=== PATIENT | female | born 1980 | race Caucasian/White ===

== ENCOUNTER 2017-03-27 22:05 | Emergency (ER) | payer BC ==
[~2017-03-27] VITALS: Ht 167.6 cm; Wt 78.7 kg
[~2017-03-27 22:05] MED LIST: FLEXERIL10 MG PO; KEPPRA1000 MG PO; KEPPRA750 MG PO; LAMICTAL150 MG PO; LAMICTAL200 MG PO; LIDODERM 5% P1 PATCH TD; MOTRIN600 MG PO; MOTRIN800 MG PO; NAPROSYN500 MG PO; VALIUM2 MG PO
[2017-03-27 23:23] LABS: HEMATOCRIT 37.6 % (36.0-46.0); MCH 30.7 PG (29.0-34.0); MCHC 32.7 G/DL (30.0-36.0); MCV 93.8 FL (83-99); PLATELET COUNT 241 K/uL (156-360); RBC DIS.WIDTH-CV 13.7 % (11.8-14.6); RBC DIS.WIDTH-SD 46.7 % (39-53); RED BLOOD COUNT 4.01 M/uL (3.80-5.20); WHITE BLOOD COUNT 8.4 K/uL (4.1-10.2)
[2017-03-28 00:16] LABS: CHLORIDE 111 mEq/L (99-109); POTASSIUM 3.7 mEq/L (3.7-5.4); SODIUM 142 mEq/L (136-147)
[2017-03-28 00:18] LABS: GLUCOSE 92 mg/dL (70-99)
[2017-03-28 00:19] LABS: ANION GAP 6 MEQ/L (2-14)
[2017-03-28 00:22] LABS: GFR ESTIMATE (CALCULATED) > 59 mL/min/
[2017-03-28 00:23] LABS: UREA NITROGEN (BUN) 12 mg/dL (9-23)
[2017-03-28 00:24] LABS: CREATINE KINASE 130 IU/L (1-294); TOTAL CK 130 IU/L (1-294)
[2017-03-28 00:34] LABS: CK-MB 1.3 ng/mL (0.0-4.9); QUANTITATIVE HCG < 4.0 MIU/ML
[2017-03-28 02:20] VITALS: BP 107/65
== END 2017-03-28 02:30 | disposition home or self-care (01) ==
LOC: EME 22:05
PROVIDERS: Emergency Medicine
DX: G40.909 Epilepsy, unspecified, not intractable, without status epilepticus (principal); S00.83XA Contusion of other part of head, initial encounter; M54.89 Other dorsalgia; W22.8XXA Striking against or struck by other objects, initial encounter
CPT/HCPCS: 70450; 70486; 80048; 80175 90; 81003; 82550; 82553; 84702; 85027; 99281; 99285

== ENCOUNTER 2017-06-09 01:06 | Observation (INO) | payer OTHER ==
[~2017-06-09] VITALS: Ht 167.6 cm; Wt 68.4 kg
[2017-06-09 02:26] LABS: HEMATOCRIT 38.8 % (36.0-46.0); MCH 31.5 PG (29.0-34.0); MCHC 34.5 G/DL (30.0-36.0); MCV 91.3 FL (83-99); MEAN PLAT.VOLUME 10.2 uM^3 (9.5-12.4); NRBC (%) 0.3 /100 WBC (0-0); PLATELET COUNT 246 K/uL (156-360); RBC DIS.WIDTH-SD 43.3 % (39-53); RED BLOOD COUNT 4.25 M/uL (3.80-5.20); WHITE BLOOD COUNT 9.1 K/uL (4.1-10.2)
[2017-06-09 02:46] LABS: CHLORIDE 111 mEq/L (99-109); POTASSIUM 3.5 mEq/L (3.7-5.4); SODIUM 142 mEq/L (136-147)
[2017-06-09 02:48] LABS: GLUCOSE 110 mg/dL (70-99)
[2017-06-09 02:50] LABS: ANION GAP 12 MEQ/L (2-14)
[2017-06-09 02:52] LABS: GFR ESTIMATE (CALCULATED) > 59 mL/min/
[2017-06-09 02:53] LABS: UREA NITROGEN (BUN) 11 mg/dL (9-23)
[2017-06-09 02:54] LABS: TOTAL CK 1123 IU/L (1-294)
[2017-06-09 02:55] LABS: CREATINE KINASE 1123 IU/L (1-294)
[2017-06-09 03:00] LABS: QUANTITATIVE HCG < 4.0 MIU/ML
[2017-06-09 03:01] LABS: CK-MB 4.3 ng/mL (0.0-4.9)
[2017-06-09 05:30] VITALS: BP 115/70
[2017-06-11 23:02] LABS: LAMOTRIGINE (LAMICTAL)+ 8.3 mcg/mL (4.0-18.0)
== END 2017-06-09 08:01 | disposition left against medical advice (07) ==
LOC: EME 01:06 → EDOF 04:26 → ENRESERV 04:28 → 5WEST 05:21
PROVIDERS: Emergency Medicine
DX: G40.909 Epilepsy, unspecified, not intractable, without status epilepticus (principal); M62.82 Rhabdomyolysis; Z91.19 Patient's noncompliance with other medical treatment and regimen; S00.531A Contusion of lip, initial encounter; S00.31XA Abrasion of nose, initial encounter; Z88.0 Allergy status to penicillin; Z87.891 Personal history of nicotine dependence; Z88.8 Allergy status to other drugs, medicaments and biological substances
CPT/HCPCS: 80048; 80048 91; 80175 90; 80177 90; 81003; 82550; 82550 91; 82553; 84702; 85027; 99281; 99285; G0378; J7030

== ENCOUNTER 2017-06-22 12:50 | Emergency (ER) | payer OTHER | END 2017-06-22 13:23 | disposition left against medical advice (07) | LOC: EME 12:50 | DX: S61.213A Laceration without foreign body of left middle finger without damage to nail, initial encounter (principal); Z53.21 Procedure and treatment not carried out due to patient leaving prior to being seen by health care provider ==

== ENCOUNTER 2017-10-01 09:43 | Day surgery (SDC) | payer OTHER ==
[~2017-10-01] VITALS: Ht 165.1 cm; Wt 68.0 kg
[~2017-10-01 09:43] MED LIST changes: +ATIVAN0.5 MG PO; +BENTYL20 MG PO; +CAPSAICIN57 GM TP; +KEPPRA XR750 MG PO; +LAMICTAL100 MG PO; +MAALOX ADVANCE355 ML PO; +METOCLOPRAMIDE H5 MG PO; +PANTOPRAZOLE SO40 MG PO; +PROBIOTIC1 EAC3 PO; +PROMETHAZINE HC25 M1 PO; +REGLAN5 MG PO; +TRAMADOL HCL50 MG PO; +TYLENOL EXTRA500 MG PO
[2017-10-01 10:31] VITALS: BP 110/65
[2017-10-01] MEDS ORDERED: LORTAB 5-325 M1 EACH PO (12:08)
[2017-10-01 13:00] VITALS: BP 103/68
[2017-10-01 13:50] VITALS: BP 119/64
== END 2017-10-01 13:50 | disposition home or self-care (01) ==
LOC: SDC 09:43
PROC: 0HBU0ZX Excision of Left Breast, Open Approach, Diagnostic (ICD-10-PCS; principal; 2017-10-01)
DX: N60.02 Solitary cyst of left breast (principal); L72.0 Epidermal cyst; G40.909 Epilepsy, unspecified, not intractable, without status epilepticus; Z87.891 Personal history of nicotine dependence; Z88.0 Allergy status to penicillin
CPT/HCPCS: 88304; J1100; J1956; J2175; J2250; J2405; J3010; J7120; S0020

== ENCOUNTER 2018-03-18 02:51 | Emergency (ER) | payer OTHER ==
[~2018-03-18] VITALS: Ht 167.6 cm; Wt 71.1 kg
[~2018-03-18 02:51] MED LIST changes: +LORTAB 5-325 M1 EACH PO
[2018-03-18 03:13] LABS: HEMATOCRIT 38.7 % (36.0-46.0); HEMOGLOBIN 13.2 G/DL (11.9-15.5); MCH 31.6 PG (29.0-34.0); MCHC 34.1 G/DL (30.0-36.0); MCV 92.6 FL (83-99); PLATELET COUNT 217 K/uL (156-360); RBC DIS.WIDTH-CV 13.1 % (11.8-14.6); RBC DIS.WIDTH-SD 44.4 % (39-53); RED BLOOD COUNT 4.18 M/uL (3.80-5.20); WHITE BLOOD COUNT 10.9 K/uL (4.1-10.2)
[2018-03-18 03:21] LABS: ALBUMIN 4.4 g/dL (3.2-4.8); CHLORIDE 106 mEq/L (99-109); POTASSIUM 3.8 mEq/L (3.7-5.4); SODIUM 139 mEq/L (136-147)
[2018-03-18 03:24] LABS: GLUCOSE 127 mg/dL (70-99); TOTAL PROTEIN 6.9 g/dL (6.4-8.3)
[2018-03-18 03:26] LABS: TOTAL BILIRUBIN 0.4 mg/dL (0.0-1.0)
[2018-03-18 03:27] LABS: ALKALINE PHOSPHATASE 55 IU/L (3-129); CREATININE 0.8 mg/dL (0.6-1.3); GFR ESTIMATE (CALCULATED) > 59 mL/min/
[2018-03-18 03:28] LABS: UREA NITROGEN (BUN) 13 mg/dL (9-23)
[2018-03-18 03:29] LABS: AST (GOT) 19 IU/L (2-34)
[2018-03-18 03:30] LABS: ALT (GPT) 21 IU/L (3-49)
[2018-03-18 03:36] LABS: QUANTITATIVE HCG < 4.0 MIU/ML
[2018-03-18 03:41] LABS: APPEARANCE CLEAR ((CLEAR)); BILIRUBIN NEGATIVE; BLOOD NEGATIVE; COLOR YELLOW ((YELLOW)); GLUCOSE (STRIP) NEGATIVE; KETONES 5; LEUKOCYTES NEGATIVE; NITRITE NEGATIVE; PROTEIN (STRIP) 100; SPECIFIC GRAVITY 1.024 (1.000-1.030); UROBILINOGEN 0.2 MG/DL (0.2-1.0)
[2018-03-18 03:44] LABS: BACTERIA NONE SEEN /HPF; EPITHELIAL CELLS RARE /HPF; MUCUS TRACE /LPF; RED BLOOD CELLS 0-5 /HPF (0-5); UCUL ADDED? NO; WHITE BLOOD CELLS 0-5 /HPF (0-5)
[2018-03-18 03:58] LABS: LIPASE 33 U/L (1.0-51.0)
[2018-03-18] MEDS ORDERED: BENTYL20 MG PO (05:09)
[2018-03-18] MEDS ORDERED: ZOFRAN4 MG PO (05:09)
[2018-03-18] MEDS ORDERED: PEPCID20 MG PO (05:57)
[2018-03-18 06:17] VITALS: BP 145/81
== END 2018-03-18 06:17 | disposition home or self-care (01) ==
LOC: EME 02:51
DX: R11.2 Nausea with vomiting, unspecified (principal); R19.7 Diarrhea, unspecified; E86.0 Dehydration; G40.909 Epilepsy, unspecified, not intractable, without status epilepticus; Z88.2 Allergy status to sulfonamides; Z88.0 Allergy status to penicillin; Z87.891 Personal history of nicotine dependence; Z88.8 Allergy status to other drugs, medicaments and biological substances
CPT/HCPCS: 76705; 80053; 81003; 83690; 84702; 85027; 99281; 99285; J2405; J2765; J3010; J7030

== ENCOUNTER 2018-04-20 14:01 | Emergency (ER) | payer OTHER ==
[~2018-04-20] VITALS: Ht 167.6 cm; Wt 72.5 kg
[~2018-04-20 14:01] MED LIST changes: +PEPCID20 MG PO; +ZOFRAN4 MG PO
[2018-04-20 16:32] LABS: APPEARANCE CLEAR ((CLEAR)); BILIRUBIN NEGATIVE; BLOOD NEGATIVE; COLOR YELLOW ((YELLOW)); GLUCOSE (STRIP) NEGATIVE; KETONES NEGATIVE; LEUKOCYTES NEGATIVE; NITRITE NEGATIVE; PROTEIN (STRIP) NEGATIVE; SPECIFIC GRAVITY 1.017 (1.000-1.030); UCUL ADDED? NO; UROBILINOGEN 0.2 MG/DL (0.2-1.0)
[2018-04-20 17:15] VITALS: BP 109/72
== END 2018-04-20 17:21 | disposition home or self-care (01) ==
LOC: EME 14:01
PROVIDERS: Physician Assistant
DX: S09.90XA Unspecified injury of head, initial encounter (principal); G40.909 Epilepsy, unspecified, not intractable, without status epilepticus; W22.8XXA Striking against or struck by other objects, initial encounter; Z88.2 Allergy status to sulfonamides; Z88.0 Allergy status to penicillin; Z88.8 Allergy status to other drugs, medicaments and biological substances; Z87.891 Personal history of nicotine dependence
CPT/HCPCS: 70450; 81003; 81025; 99281; 99284

== ENCOUNTER 2018-05-05 15:55 | Emergency (ER) | payer OTHER ==
[~2018-05-05] VITALS: Ht 167.6 cm; Wt 70.9 kg
[2018-05-05 17:01] VITALS: BP 112/81
== END 2018-05-05 17:01 | disposition home or self-care (01) ==
LOC: EME 15:55
PROC: 0HQFXZZ Repair Right Hand Skin, External Approach (ICD-10-PCS; principal; 2018-05-05)
DX: S61.210A Laceration without foreign body of right index finger without damage to nail, initial encounter (principal); W29.0XXA Contact with powered kitchen appliance, initial encounter; G40.909 Epilepsy, unspecified, not intractable, without status epilepticus; Z88.2 Allergy status to sulfonamides; Z88.0 Allergy status to penicillin; Z88.8 Allergy status to other drugs, medicaments and biological substances; Z87.891 Personal history of nicotine dependence
CPT/HCPCS: 99281; 99283